=== PATIENT | male | born 1970 | race American Indian/Alaskan Native ===

== ENCOUNTER 2025-03-17 12:06 | Day surgery (SDC) | payer OTHER ==
[~2025-03-17] VITALS: Ht 177.8 cm; Wt 122.9 kg
[~2025-03-17 12:06] MED LIST: ALBU90OI INH; Balanced Salt Epinephrine Irrigation Solution 500 mL IR SCH; CYCL10 PO; EZET10 PO; FLONASE ALLERG9.9 M2; HUMULIN N100 UNIT/3 SC; HYDR100 PO; LOSA50 PO; Moxifloxacin HCL 0.5 MG/0.1 ML 0.4MLSYR LEFTEYE SCH; Ondansetron 4 MG SoluTab MM PRN; PHENYLEPHRINE\\TROPICAMIDE\\TETRACAINE OPHTHALMIC DILATING SOLN LEFTEYE PRN; Povidone-Iodine 450 DROP/30 ML Solution LEFTEYE SCH; RIZATRIPTAN10 MG SL; STEGLATRO15 MG PO; Triamcinolone Inj Susp 40 MG / ML 1ML Vial INJ SCH; Triamcinolone Inj Susp 40 MG / ML 1ML Vial ONE; XALATAN2.5 ML; ZYRTEC10 M2 PO; [UNRECOGNIZED DRUG - OTHER] PO
[2025-03-17] MEDS ORDERED: Cyclobenzaprine5 MG PO (12:47)
[2025-03-17] MEDS ORDERED: BUTALB-ACETAMI1 EAC5 PO (12:48)
[2025-03-17] MEDS ORDERED: RIZATRIPTAN10 M3 PO (12:48)
[2025-03-17] MEDS ORDERED: Tetracaine HCl 0.5% Opth Soln 15 ml LEFTEYE ONE (13:04)
--- NOTE | 2025-03-17 13:08 | NUR ---
03/17/25 1308 Regla Martinez N 153/96 18 100 98% 10L BLOW BY O2
[2025-03-17 13:42] VITALS: BP 153/83
== END 2025-03-17 14:00 | disposition home or self-care (01) ==
LOC: ORSCSDS 12:06
PROVIDERS: Ophthalmology
PROC: 08RK3JZ Replacement of Left Lens with Synthetic Substitute, Percutaneous Approach (ICD-10-PCS; principal; 2025-03-17 13:30)
DX: E11.36 Type 2 diabetes mellitus with diabetic cataract (principal); H25.812 Combined forms of age-related cataract, left eye; I10 Essential (primary) hypertension; J45.909 Unspecified asthma, uncomplicated; F32.A Depression, unspecified; Z79.4 Long term (current) use of insulin; Z79.899 Other long term (current) drug therapy; Z79.84 Long term (current) use of oral hypoglycemic drugs
CPT/HCPCS: A9270; J3301; V2632